=== PATIENT | male | born 1945 | race Caucasian/White ===

== ENCOUNTER 2021-08-10 00:46 | Observation (INO) | payer OTHER ==
[2021-08-10 01:26] LABS: #Eosinphils 0.1 10x3/uL (0.0-0.5); #Monocytes 0.9 10x3/uL (0.0-1.1); #Neutrophils 3.8 10x3/uL (1.5-8.4); %Basophils 0.6 % (0.0-2.0); %Eosinophils 1.6 % (0.0-6.0); %Lymphocytes 22.5 % (18.0-47.0); %Monocytes 13.7 % (0.0-10.0); %Neutrophils 61.1 % (40.0-75.0); Hemoglobin 13.5 g/dL (13.5-17.5); Mean Corpuscular HGB CONC 32.8 g/dL (32.0-36.0); Mean Corpuscular Hemoglobin 28.4 pg (27.0-33.0); Mean Corpuscular Volume 86.7 fl (81.2-95.1); Mean Platelet Volume 9.1 fl (7.4-10.4); RBC Distribution Width 13.7 % (11.5-14.5); Red Blood Cell (RBC) Count 4.75 10x6/uL (4.32-5.72); White Blood Cell (WBC) Count 6.2 10x3/uL (3.5-10.5)
[2021-08-10 01:37] LABS: ALT (SGPT) 16 U/L (8-55); AST (SGOT) 16 U/L (5-34); Alkaline Phosphatase 68 U/L (40-110); Anion Gap 12 mmol/L (10-20); BUN (Urea Nitrogen) 23 mg/dL (8.4-25.7); Bilirubin, Total 0.3 mg/dL (0.2-1.2); CK (CPK) 54 U/L (30-200); Calc. Creatinine Clearance 0 mL/min (70-130); Calcium 8.9 mg/dL (7.8-10.44); Carbon Dioxide 24 mmol/L (23-31); Chloride 105 mmol/L (98-107); Globulin 3.2 g/dL (2.4-3.5); Glucose 110 mg/dL (83-110); Platelet Count 212 10x3/uL (150-450); Potassium 4.4 mmol/L (3.5-5.1); Protein, Total 7.2 g/dL (5.8-8.1); Sodium 137 mmol/L (136-145)
[2021-08-10] MEDS ORDERED: Nitroglycerin 2% Ointment 1 INCH/1 GM Packet ONE (01:41)
[2021-08-10] MEDS ORDERED: Metoprolol Tartrate 5 MG/5 ML VIAL ONE (01:41)
[2021-08-10] MEDS ORDERED: Enoxaparin Sodium 100 MG/ML SYRINGE ONE (02:32)
[2021-08-10] MEDS ORDERED: Calcium Carbonate 500 MG ChewTAB PO PRN (05:45)
[2021-08-10] MEDS ORDERED: Ondansetron PF 4 MG/2 ML Vial IVP PRN (05:45)
[2021-08-10] MEDS ORDERED: Acetaminophen 325 MG TAB PO PRN (05:45)
[2021-08-10] MEDS ORDERED: Senokot S 8.6-50 MG TAB PO PRN (05:45)
[2021-08-10] MEDS ORDERED: Nitroglycerin 0.4 MG TAB (25 Tab Bottle) SL PRN (05:47)
[2021-08-10 06:29] LABS: Troponin I Less than 0.010 ng/mL (< 0.028)
[2021-08-10 08:15] LABS: SARS-CoV-2 NAA Rapid Test Not Detected (NotDetected)
[2021-08-10] MEDS ORDERED: Enoxaparin Sodium 30 MG/0.3 ML SYRINGE SC SCH (09:00)
[2021-08-10 10:00] VITALS: BMI 26.4
[2021-08-10 10:51] LABS: Anion Gap 14 mmol/L (10-20); BUN (Urea Nitrogen) 25 mg/dL (8.4-25.7); Calc. Creatinine Clearance 64 mL/min (70-130); Calcium 9.1 mg/dL (7.8-10.44); Carbon Dioxide 21 mmol/L (23-31); Cardiac Risk 6.8 (Less than 4.5); Chloride 109 mmol/L (98-107); Cholesterol 253 mg/dl (< 200 Desired); Glucose 127 mg/dL (83-110); HDL Cholesterol 37 mg/dL (>60 Neg Risk); Potassium 4.2 mmol/L (3.5-5.1); Sodium 140 mmol/L (136-145); Triglycerides 512 mg/dL (Less than 150)
[2021-08-10 10:56] LABS: LDL Cholesterol, Calculated 114 mg/dL
[2021-08-10] MEDS: Aspirin 81 mg Enteric Coated Tablet PO SCH (11:17)
[2021-08-10] MEDS: Carvedilol 12.5 MG TAB PO SCH ×2 (11:17→18:44)
[2021-08-10] MEDS: Levothyroxine Sodium 50 MCG TAB PO SCH (11:17)
[2021-08-10] MEDS: Ezetimibe 10 MG TAB PO SCH (11:17)
[2021-08-10] MEDS: levETIRAcetam 500 MG TAB PO SCH ×2 (11:18→21:27)
[2021-08-10] MEDS: Lisinopril 10 MG TAB PO SCH (11:18)
[2021-08-10] MEDS ORDERED: Atorvastatin Calcium 40 MG TAB PO SCH (21:00)
[2021-08-11] MEDS: Levothyroxine Sodium 50 MCG TAB PO SCH (05:25)
[2021-08-11 05:58] LABS: Anion Gap 12 mmol/L (10-20); BUN (Urea Nitrogen) 31 mg/dL (8.4-25.7); Calc. Creatinine Clearance 69 mL/min (70-130); Calcium 9.2 mg/dL (7.8-10.44); Carbon Dioxide 25 mmol/L (23-31); Chloride 107 mmol/L (98-107); Glucose 100 mg/dL (83-110); Potassium 4.7 mmol/L (3.5-5.1); Sodium 139 mmol/L (136-145)
[2021-08-11 06:26] LABS: #Basophils 0.1 10x3/uL (0.0-0.2); #Eosinphils 0.1 10x3/uL (0.0-0.5); #Monocytes 1.2 10x3/uL (0.0-1.1); #Neutrophils 6.1 10x3/uL (1.5-8.4); %Basophils 0.7 % (0.0-2.0); %Eosinophils 1.4 % (0.0-6.0); %Lymphocytes 17.3 % (18.0-47.0); %Monocytes 12.8 % (0.0-10.0); %Neutrophils 67.2 % (40.0-75.0); Hemoglobin 13.3 g/dL (13.5-17.5); Mean Corpuscular HGB CONC 32.2 g/dL (32.0-36.0); Mean Corpuscular Hemoglobin 28.7 pg (27.0-33.0); Mean Platelet Volume 9.2 fl (7.4-10.4); Platelet Count 203 10x3/uL (150-450); Red Blood Cell (RBC) Count 4.64 10x6/uL (4.32-5.72); White Blood Cell (WBC) Count 9.1 10x3/uL (3.5-10.5)
[2021-08-11 07:55] VITALS: BP 162/72; TEMP 97.4
[2021-08-11] MEDS: Ezetimibe 10 MG TAB PO SCH (07:57)
[2021-08-11] MEDS: Aspirin 81 mg Enteric Coated Tablet PO SCH (07:57)
[2021-08-11] MEDS: Carvedilol 12.5 MG TAB PO SCH (07:57)
[2021-08-11] MEDS: levETIRAcetam 500 MG TAB PO SCH (07:58)
[2021-08-11] MEDS: Lisinopril 10 MG TAB PO SCH (07:58)
[2021-08-11] MEDS ORDERED: Enoxaparin Sodium 40 MG/0.4 ML SYRINGE SC SCH (09:00)
== END 2021-08-11 15:00 ==
LOC: CSHERS 00:46 → EEVIPCON 03:24 → INTOOBSV 03:24 → CSHERHOLD 03:24 → CSHTELE 10:58
PROVIDERS: ADMIT Student in an Organized Health Care Education/Training Program; ATTEND Nurse Practitioner Family
DX: R07.2 Precordial pain (principal); I16.0 Hypertensive urgency; I25.10 Atherosclerotic heart disease of native coronary artery without angina pectoris; E03.9 Hypothyroidism, unspecified; I12.9 Hypertensive chronic kidney disease with stage 1 through stage 4 chronic kidney disease, or unspecified chronic kidney disease; N18.9 Chronic kidney disease, unspecified; K21.9 Gastro-esophageal reflux disease without esophagitis; Z79.899 Other long term (current) drug therapy; Z79.82 Long term (current) use of aspirin; E78.5 Hyperlipidemia, unspecified; Z95.5 Presence of coronary angioplasty implant and graft; Z87.891 Personal history of nicotine dependence; J44.9 Chronic obstructive pulmonary disease, unspecified; Z20.822 Contact with and (suspected) exposure to COVID-19
CPT/HCPCS: 36415; 71045; 80048; 80053; 80061; 82550; 83880; 84484; 85025; 90471; 90732; 93005; 93306; 96372; 96374; G0009; G0378; J1650; U0002

== ENCOUNTER 2021-09-17 14:28 | Observation (INO) | payer OTHER ==
[2021-09-17 15:29] LABS: Hemoglobin 13.2 g/dL (13.5-17.5); Mean Corpuscular HGB CONC 32.8 g/dL (32.0-36.0); Mean Corpuscular Hemoglobin 28.6 pg (27.0-33.0); Mean Platelet Volume 9.3 fl (7.4-10.4); Platelet Count 165 10x3/uL (150-450); RBC Distribution Width 13.8 % (11.5-14.5); Red Blood Cell (RBC) Count 4.62 10x6/uL (4.32-5.72)
[2021-09-17 15:46] LABS: ALT (SGPT) 9 U/L (8-55); AST (SGOT) 11 U/L (5-34); Albumin 3.8 g/dL (3.4-4.8); Alkaline Phosphatase 75 U/L (40-110); Anion Gap 13 mmol/L (10-20); BUN (Urea Nitrogen) 20 mg/dL (8.4-25.7); Bilirubin, Total 0.3 mg/dL (0.2-1.2); Calc. Creatinine Clearance 0 mL/min (70-130); Calcium 8.6 mg/dL (7.8-10.44); Carbon Dioxide 23 mmol/L (23-31); Chloride 108 mmol/L (98-107); Globulin 3.1 g/dL (2.4-3.5); Glucose 103 mg/dL (83-110); Potassium 4.3 mmol/L (3.5-5.1); Protein, Total 6.9 g/dL (5.8-8.1); Sodium 140 mmol/L (136-145)
[2021-09-17 16:08] LABS: MDiff Complete? YES
[2021-09-17 16:10] LABS: Lymphocytes 24 % (21-51)
[2021-09-17 16:12] LABS: Eosinophils 2 % (0-10); Monocytes 17 % (0-10); Neutrophil 57 % (42-75)
[2021-09-17 16:13] LABS: Platelet Morphology Comment Appears Adequate
[2021-09-17 17:27] LABS: SARS-CoV-2 NAA Rapid Test DETECTED (NotDetected)
[2021-09-17] MEDS ORDERED: Acetaminophen 325 MG TAB PO PRN (20:00)
[2021-09-17] MEDS ORDERED: Ondansetron PF 4 MG/2 ML Vial IVP PRN (20:00)
[2021-09-17] MEDS ORDERED: Guaifenesin DM 100-10/5 ML UDCUP PO PRN (20:00)
[2021-09-17] MEDS ORDERED: Calcium Carbonate 500 MG ChewTAB PO PRN ×2 (20:00→20:02)
[2021-09-17] MEDS ORDERED: Senokot S 8.6-50 MG TAB PO PRN (20:00)
[2021-09-17] MEDS ORDERED: Nitroglycerin 0.4 MG TAB (25 Tab Bottle) SL PRN (20:04)
[2021-09-17] MEDS ORDERED: Ventolin HFA Inhaler 60 PUFF INHALER INH PRN (20:09)
[2021-09-17] MEDS ORDERED: Carvedilol 3.125 MG TAB PO SCH (20:30)
[2021-09-17] MEDS ORDERED: Famotidine/PF 20 mg/2ml Vial SLOW IVP SCH (20:30)
[2021-09-17] MEDS ORDERED: Isosorbide Dinitrate 10 MG TAB PO SCH (20:30)
[2021-09-17] MEDS ORDERED: Atorvastatin Calcium 40 MG TAB PO SCH (21:00)
[2021-09-17] MEDS: Calcium Carbonate 600 MG + Vit D TAB PO SCH (21:56)
[2021-09-17] MEDS: levETIRAcetam 500 MG TAB PO SCH (21:57)
[2021-09-18 01:02] VITALS: BMI 26.2
[2021-09-18] MEDS ORDERED: Levothyroxine Sodium 50 MCG TAB PO SCH (06:00)
[2021-09-18] MEDS ORDERED: Budesonide 0.5 MG/2 ML NEB NEB SCH (06:30)
[2021-09-18 07:42] LABS: Anion Gap 12 mmol/L (10-20); BUN (Urea Nitrogen) 16 mg/dL (8.4-25.7); Calc. Creatinine Clearance 71 mL/min (70-130); Calcium 8.8 mg/dL (7.8-10.44); Carbon Dioxide 24 mmol/L (23-31); Chloride 108 mmol/L (98-107); Glucose 99 mg/dL (83-110); Potassium 4.1 mmol/L (3.5-5.1); Sodium 140 mmol/L (136-145)
[2021-09-18] MEDS ORDERED: Mometasone 100 MCG/PUFF (1 INHALER) INH SCH ×2 (08:00→18:30)
[2021-09-18] MEDS ORDERED: Carvedilol 12.5 MG TAB PO SCH (08:00)
[2021-09-18] MEDS ORDERED: Lisinopril 10 MG TAB PO SCH (09:00)
[2021-09-18] MEDS ORDERED: Ezetimibe 10 MG TAB PO SCH (09:00)
[2021-09-18] MEDS ORDERED: Fenofibrate 48 MG TAB PO SCH (09:00)
[2021-09-18] MEDS ORDERED: Enoxaparin Sodium 40 MG/0.4 ML SYRINGE SC SCH (09:00)
[2021-09-18] MEDS ORDERED: Aspirin 81 mg Enteric Coated Tablet PO SCH (09:00)
[2021-09-18] MEDS ORDERED: Zinc Gluconate 50 MG TAB PO SCH (09:00)
[2021-09-18] MEDS: Calcium Carbonate 600 MG + Vit D TAB PO SCH (09:06)
[2021-09-18] MEDS: levETIRAcetam 500 MG TAB PO SCH (09:06)
[2021-09-18 11:54] VITALS: BP 120/72; TEMP 97.8
== END 2021-09-18 13:30 ==
LOC: CSHERS 14:28 → CSHTELE 21:24
PROVIDERS: ADMIT Student in an Organized Health Care Education/Training Program; ATTEND Hospitalist
DX: R07.9 Chest pain, unspecified (principal); I25.118 Atherosclerotic heart disease of native coronary artery with other forms of angina pectoris; I12.9 Hypertensive chronic kidney disease with stage 1 through stage 4 chronic kidney disease, or unspecified chronic kidney disease; N18.31 Chronic kidney disease, stage 3a; U07.1 COVID-19; K21.9 Gastro-esophageal reflux disease without esophagitis; E78.5 Hyperlipidemia, unspecified; Z79.82 Long term (current) use of aspirin; Z79.899 Other long term (current) drug therapy; Z95.5 Presence of coronary angioplasty implant and graft; E03.9 Hypothyroidism, unspecified; Z87.891 Personal history of nicotine dependence
CPT/HCPCS: 36415; 71045; 80048; 80053; 83880; 84484; 85025; 93005; 94664; 94760; 96372; 96374; G0378; J1650; S0028; U0002

== ENCOUNTER 2022-01-09 06:39 | Emergency (ER) | payer OTHER ==
[2022-01-09 07:14] LABS: #Eosinphils 0.1 10x3/uL (0.0-0.5); #Monocytes 0.8 10x3/uL (0.0-1.1); #Neutrophils 3.9 10x3/uL (1.5-8.4); %Basophils 0.5 % (0.0-2.0); %Eosinophils 1.8 % (0.0-6.0); %Lymphocytes 21.4 % (18.0-47.0); %Monocytes 12.9 % (0.0-10.0); %Neutrophils 63.2 % (40.0-75.0); Hemoglobin 13.4 g/dL (13.5-17.5); Mean Corpuscular HGB CONC 34.2 g/dL (32.0-36.0); Mean Corpuscular Hemoglobin 28.6 pg (27.0-33.0); Mean Corpuscular Volume 83.8 fl (81.2-95.1); Mean Platelet Volume 9.8 fl (7.4-10.4); Platelet Count 156 10x3/uL (150-450); RBC Distribution Width 13.8 % (11.5-14.5); Red Blood Cell (RBC) Count 4.68 10x6/uL (4.32-5.72); White Blood Cell (WBC) Count 6.1 10x3/uL (3.5-10.5)
[2022-01-09 07:30] LABS: ALT (SGPT) 11 U/L (8-55); AST (SGOT) 10 U/L (5-34); Albumin 3.8 g/dL (3.4-4.8); Alkaline Phosphatase 69 U/L (40-110); Anion Gap 17 mmol/L (10-20); BUN (Urea Nitrogen) 17 mg/dL (8.4-25.7); Bilirubin, Total 0.5 mg/dL (0.2-1.2); Calc. Creatinine Clearance 0 mL/min (70-130); Calcium 8.8 mg/dL (7.8-10.44); Carbon Dioxide 22 mmol/L (23-31); Chloride 107 mmol/L (98-107); Globulin 2.9 g/dL (2.4-3.5); Glucose 117 mg/dL (83-110); Potassium 4.5 mmol/L (3.5-5.1); Protein, Total 6.7 g/dL (5.8-8.1); Sodium 141 mmol/L (136-145)
[2022-01-09 07:50] LABS: SARS-CoV-2 NAA Rapid Test Not Detected (NotDetected)
== END 2022-01-09 13:35 | disposition short-term general hospital (02) ==
LOC: EEVIPCON 06:39 → CSHERS 06:39
DX: R07.9 Chest pain, unspecified (principal); K21.9 Gastro-esophageal reflux disease without esophagitis; I25.10 Atherosclerotic heart disease of native coronary artery without angina pectoris; E78.5 Hyperlipidemia, unspecified; I10 Essential (primary) hypertension; J44.9 Chronic obstructive pulmonary disease, unspecified; E03.9 Hypothyroidism, unspecified; E55.9 Vitamin D deficiency, unspecified; F03.90 Unspecified dementia, unspecified severity, without behavioral disturbance, psychotic disturbance, mood disturbance, and anxiety; H26.9 Unspecified cataract; Z20.822 Contact with and (suspected) exposure to COVID-19; Z95.5 Presence of coronary angioplasty implant and graft; Z79.82 Long term (current) use of aspirin; Z79.899 Other long term (current) drug therapy
CPT/HCPCS: 71045; 80053; 84484; 85025; 93005; U0002

== ENCOUNTER 2022-04-16 13:34 | Inpatient (IN) | payer OTHER ==
[2022-04-16 15:23] LABS: CKMB 2.2 ng/mL (0-6.6)
[2022-04-16 16:08] LABS: #Eosinphils 0.1 10x3/uL (0.0-0.5); #Monocytes 0.7 10x3/uL (0.0-1.1); #Neutrophils 4.1 10x3/uL (1.5-8.4); %Basophils 0.5 % (0.0-2.0); %Eosinophils 1.6 % (0.0-6.0); %Lymphocytes 22.4 % (18.0-47.0); %Monocytes 11.2 % (0.0-10.0); %Neutrophils 63.8 % (40.0-75.0); Mean Corpuscular HGB CONC 33.2 g/dL (32.0-36.0); Mean Corpuscular Volume 87.5 fl (81.2-95.1); Platelet Count 223 10x3/uL (150-450); Red Blood Cell (RBC) Count 5.51 10x6/uL (4.32-5.72); White Blood Cell (WBC) Count 6.4 10x3/uL (3.5-10.5)
[2022-04-16 16:27] LABS: ALT (SGPT) 17 U/L (8-55); AST (SGOT) 19 U/L (5-34); Albumin 4.8 g/dL (3.4-4.8); Alkaline Phosphatase 85 U/L (40-110); Anion Gap 16 mmol/L (10-20); BUN (Urea Nitrogen) 15 mg/dL (8.4-25.7); Bilirubin, Total 0.7 mg/dL (0.2-1.2); Calc. Creatinine Clearance 0 mL/min (70-130); Calcium 9.7 mg/dL (7.8-10.44); Carbon Dioxide 21 mmol/L (23-31); Chloride 105 mmol/L (98-107); Estimated GFR 73; Globulin 3.8 g/dL (2.4-3.5); Glucose 107 mg/dL (83-110); Potassium 4.4 mmol/L (3.5-5.1); Protein, Total 8.6 g/dL (5.8-8.1); Sodium 138 mmol/L (136-145)
[2022-04-16] MEDS ORDERED: hydrALAZINE 20 MG/ML VIAL SLOW IVP PRN (16:56)
[2022-04-16] MEDS: Carvedilol 6.25 MG TAB PO SCH (18:29)
[2022-04-16 18:56] LABS: Troponin I 0.838 ng/mL (< 0.028)
[2022-04-16] MEDS: levETIRAcetam 500 MG TAB PO SCH (20:28)
[2022-04-16] MEDS: Atorvastatin Calcium 40 MG TAB PO SCH (20:28)
[2022-04-16] MEDS: Calcium Carbonate 600 MG + Vit D TAB PO SCH (20:29)
[2022-04-16 21:18] LABS: Troponin I 0.874 ng/mL (< 0.028)
[2022-04-17] MEDS: Levothyroxine Sodium 50 MCG TAB PO SCH (06:29)
[2022-04-17] MEDS ORDERED: Aspirin Chewable 81 MG TAB PO SCH (09:00)
[2022-04-17] MEDS: Ezetimibe 10 MG TAB PO SCH (09:11)
[2022-04-17] MEDS: Lisinopril 10 MG TAB PO SCH (09:12)
[2022-04-17] MEDS: Aspirin 81 mg Enteric Coated Tablet PO SCH (09:12)
[2022-04-17] MEDS: Calcium Carbonate 600 MG + Vit D TAB PO SCH ×2 (09:12→20:08)
[2022-04-17] MEDS: levETIRAcetam 500 MG TAB PO SCH ×2 (09:12→20:08)
[2022-04-17] MEDS: Clopidogrel Bisulfate 75 MG TAB PO SCH (09:12)
[2022-04-17] MEDS: Enoxaparin Sodium 40 MG/0.4 ML SYRINGE SC SCH (09:13)
[2022-04-17] MEDS ORDERED: Carvedilol 12.5 MG TAB PO SCH (09:30)
[2022-04-17] MEDS: Carvedilol 6.25 MG TAB PO SCH (09:39)
[2022-04-17] MEDS: Carvedilol 12.5 MG TAB PO SCH (17:57)
[2022-04-17 18:02] VITALS: BMI 24.6
[2022-04-17] MEDS ORDERED: Lorazepam 0.5 MG TAB PO SCH (19:15)
[2022-04-17] MEDS: Atorvastatin Calcium 40 MG TAB PO SCH (20:08)
[2022-04-18 04:50] LABS: Cardiac Risk 5.4 (Less than 4.5)
[2022-04-18] MEDS: Levothyroxine Sodium 50 MCG TAB PO SCH (06:11)
[2022-04-18 07:22] VITALS: TEMP 97.1
[2022-04-18] MEDS: Ezetimibe 10 MG TAB PO SCH (08:48)
[2022-04-18] MEDS: Enoxaparin Sodium 40 MG/0.4 ML SYRINGE SC SCH (08:48)
[2022-04-18] MEDS: Aspirin 81 mg Enteric Coated Tablet PO SCH (08:48)
[2022-04-18] MEDS: Carvedilol 12.5 MG TAB PO SCH (08:48)
[2022-04-18] MEDS: Clopidogrel Bisulfate 75 MG TAB PO SCH (08:48)
[2022-04-18] MEDS: levETIRAcetam 500 MG TAB PO SCH (08:48)
[2022-04-18] MEDS: Lisinopril 10 MG TAB PO SCH (08:48)
[2022-04-18] MEDS: Calcium Carbonate 600 MG + Vit D TAB PO SCH (08:48)
[2022-04-18 08:49] VITALS: BP 157/71
== END 2022-04-18 15:20 | DRG 282 ==
LOC: EEVIPCON 13:34 → CSHERS 13:34 → CSHTELE 16:49 → OBSVTOIN 04-17 09:17
PROVIDERS: ADMIT Student in an Organized Health Care Education/Training Program; ATTEND Hospitalist
DX: I21.4 Non-ST elevation (NSTEMI) myocardial infarction (principal); F41.9 Anxiety disorder, unspecified; Z66 Do not resuscitate; I25.118 Atherosclerotic heart disease of native coronary artery with other forms of angina pectoris; J44.9 Chronic obstructive pulmonary disease, unspecified; K21.9 Gastro-esophageal reflux disease without esophagitis; F03.90 Unspecified dementia, unspecified severity, without behavioral disturbance, psychotic disturbance, mood disturbance, and anxiety; R07.89 Other chest pain; E03.9 Hypothyroidism, unspecified; E55.9 Vitamin D deficiency, unspecified; I11.9 Hypertensive heart disease without heart failure; E78.2 Mixed hyperlipidemia; Z79.82 Long term (current) use of aspirin; Z79.890 Hormone replacement therapy; Z79.02 Long term (current) use of antithrombotics/antiplatelets; Z79.899 Other long term (current) drug therapy; Z95.5 Presence of coronary angioplasty implant and graft; Z87.891 Personal history of nicotine dependence; Z98.41 Cataract extraction status, right eye; Z98.42 Cataract extraction status, left eye
CPT/HCPCS: 36415; 80061; 82553; 93005; 93306; 94760; 96372; 96374; G0378; J0360; J1650

== ENCOUNTER 2022-04-19 14:03 | Emergency (ER) | payer OTHER ==
[2022-04-19 15:23] LABS: #Eosinphils 0.1 10x3/uL (0.0-0.5); #Monocytes 0.6 10x3/uL (0.0-1.1); #Neutrophils 4.6 10x3/uL (1.5-8.4); %Basophils 0.5 % (0.0-2.0); %Eosinophils 1.9 % (0.0-6.0); %Lymphocytes 14.2 % (18.0-47.0); %Monocytes 8.9 % (0.0-10.0); %Neutrophils 73.9 % (40.0-75.0); Hemoglobin 13.1 g/dL (13.5-17.5); Mean Corpuscular HGB CONC 32.8 g/dL (32.0-36.0); Mean Corpuscular Hemoglobin 29.2 pg (27.0-33.0); Mean Corpuscular Volume 89.3 fl (81.2-95.1); Mean Platelet Volume 9.3 fl (7.4-10.4); Platelet Count 191 10x3/uL (150-450); RBC Distribution Width 14.2 % (11.5-14.5); Red Blood Cell (RBC) Count 4.48 10x6/uL (4.32-5.72); White Blood Cell (WBC) Count 6.2 10x3/uL (3.5-10.5)
[2022-04-19 15:36] LABS: ALT (SGPT) 18 U/L (8-55); AST (SGOT) 20 U/L (5-34); Albumin 4.1 g/dL (3.4-4.8); Alkaline Phosphatase 84 U/L (40-110); Anion Gap 13 mmol/L (10-20); BUN (Urea Nitrogen) 33 mg/dL (8.4-25.7); Bilirubin, Total 0.4 mg/dL (0.2-1.2); Calc. Creatinine Clearance 0 mL/min (70-130); Calcium 8.7 mg/dL (7.8-10.44); Carbon Dioxide 23 mmol/L (23-31); Chloride 107 mmol/L (98-107); Estimated GFR 57; Globulin 2.8 g/dL (2.4-3.5); Glucose 161 mg/dL (83-110); Lipase 20 U/L (8-78); Protein, Total 6.9 g/dL (5.8-8.1); Sodium 138 mmol/L (136-145)
[2022-04-19 16:22] LABS: CKMB 1.7 ng/mL (0-6.6)
== END 2022-04-19 19:38 | disposition home or self-care (01) ==
LOC: CSHERS 14:03
DX: R07.9 Chest pain, unspecified (principal); I10 Essential (primary) hypertension; I25.10 Atherosclerotic heart disease of native coronary artery without angina pectoris; E78.5 Hyperlipidemia, unspecified; J44.9 Chronic obstructive pulmonary disease, unspecified; E03.9 Hypothyroidism, unspecified
CPT/HCPCS: 36415; 71045; 80053; 82553; 83690; 84484; 85025; 93005